=== PATIENT | male | born 1960 | race Caucasian/White ===

== ENCOUNTER 2022-03-02 17:00 | Emergency (ER) | payer MEDICAID ==
[~2022-03-02] VITALS: Ht 182.9 cm; Wt 95.5 kg
[2022-03-02 17:07] VITALS: BP 135/91
== END 2022-03-02 22:19 | disposition home or self-care (01) ==
LOC: ER 17:01
DX: M54.2 Cervicalgia (principal); M89.8X8 Other specified disorders of bone, other site; M89.50 Osteolysis, unspecified site; Z87.81 Personal history of (healed) traumatic fracture
CPT/HCPCS: 71046; 72040; 73030; 73200; 93005; 99284

== ENCOUNTER 2022-03-18 21:04 | Emergency (ER) | payer MEDICAID ==
[~2022-03-18] VITALS: Ht 182.9 cm; Wt 97.7 kg
[2022-03-19] MEDS ORDERED: ibuprofen tablet 400 MG TABLET PO ONE (03:00)
[2022-03-19] MEDS ORDERED: acetaminophen 325mg tablet PO ONE (03:00)
[2022-03-19 03:09] VITALS: BP 137/87
== END 2022-03-19 03:28 | disposition home or self-care (01) ==
LOC: ER 21:04
DX: S09.90XA Unspecified injury of head, initial encounter (principal); M54.2 Cervicalgia; R51.9 Headache, unspecified; Z72.0 Tobacco use; Y08.89XA Assault by other specified means, initial encounter; Y93.89 Activity, other specified; Y92.89 Other specified places as the place of occurrence of the external cause; Y99.8 Other external cause status
CPT/HCPCS: 70450; 72125; 99284

== ENCOUNTER 2025-03-18 12:44 | Inpatient (IN) | payer MEDICAID ==
[~2025-03-18] VITALS: Ht 182.9 cm; Wt 105.5 kg
--- NOTE | 2025-03-18 14:27 | Physician Documentation ---
History of Present Illness ~ Chief Complaint: Leg Pain Stated Complaint: LEG PAIN,CELLULITIS Time Seen by MD: 13:46 Primary Medical Doctor: none Source: patient Mode of Arrival: POV, Ambulatory Exam Limitations: no limitations HPI Chief Complaint: Right leg swelling Caveat: None Independent Historians: None History of Present Illness: Patient is a 64-year-old man who comes in complaining of right leg swelling and pain and redness that began yesterday. Pain is worse today and occurs primarily with standing and walking. Pain is 6/10 with walking and is minimal at rest. Patient denies any chest pain. No shortness a breath. Patient denies any abdominal pain. No nausea vomiting or diarrhea. Review of systems: All systems were reviewed and are negative except for what is indicated in the history of present illness. Past Medical History: Denies, patient states that he had cellulitis in the leg one year ago requiring IV antibiotics and hospitalization Past Surgical History: Noncontributory Social History: Tobacco use, denies any significant alcohol use, denies drug use Medications: Reviewed as documented Nursing Notes Allergies: Reviewed as documented in Nursing Notes Tetanus witin 5 years: Yes Medication Reconciliation Allergies: Coded Allergies: No Known Allergies (Unverified , 03/18/25) Past Medical History Past Medical History: Extremity Fracture Past Surgical History: no surgical history Drug Use: none Lives In: Home Review of Systems All Other Systems at this time: Reviewed and Negative ROS Patient denies any other acute symptoms other than above. All other systems are negative Physical Exam Vital Signs: RN Vital Signs have been reviewed: Yes, Temperature: 99.7, Source: Oral, Heart Rate: 95, Respiratory Rate: 20, BP: 119/56, Pulse Oximetry: 94, Weight: 105.500 Oxygen Flow Rate: 0 Pulse Oximetry Reflects: adequate oxygenation Physical Exam General Appearance: No distress, chronically ill-appearing HEENT: Normal OP, moist oral mucosa, PERRL, EOMI Neck: supple, normal ROM, trachea midline Pulmonary: No respiratory distress, CTA, BS equal Cardiac: RRR, no murmur, rub or gallop, GI: nondistended, soft, nontender, normal bowel sounds, no guarding, no rebound Extremities: normal ROM, patient has a blister on the distal right arch that is wet an open. Patient has a minor abrasion to the right posterior lateral ankle. The right foot and right leg or tensely swollen with the erythema that has warm to touch over the right anterior leg and ankle. Skin: intact, dry, warm, no rashes Neuro: AAOx3, speech is clear, no focal motor weakness Psych: normal affect, good eye contact, no apparent hallucination, normal speech Progress Results/Orders Results/Orders Orders - GOMEZ NICHOLSON MD Drug Screen, Urine (03/18/25 14:08) Cefazolin/D5w- 1gm Premix (Ancef 1 Gm-D5 (03/18/25 16:00) Page Hospitalist (03/18/25 15:07) Fill Out Med Reconciliation (03/18/25 15:07) Completed Orders - GOMEZ NICHOLSON MD Ethanol (03/18/25 14:08) Cbc/Diff (03/18/25 14:15) Lipase (03/18/25 14:15) CMP (03/18/25 14:15) Vital Signs 03/18/25 03/18/25 12:56 13:11 Temp 99.7 Pulse 95 Resp 20 B/P (MAP) 119/56 Pulse Ox 94 O2 Flow Rate 0 Laboratory Tests Test 03/18/25 14:15 White Blood Count 16.3 H Red Blood Count 4.58 L Hemoglobin 13.9 L Hematocrit 41.2 L Mean Corpuscular Volume 89.8 Mean Corpuscular Hemoglobin 30.3 Mean Corpuscular Hemoglobin Concent 33.8 Red Cell Distribution Width 14.4 Platelet Count 241 Mean Platelet Volume 8.0 Neutrophils (%) (Auto) 87.2 H Lymphocytes (%) (Auto) 5.7 L Monocytes (%) (Auto) 6.2 Eosinophils (%) (Auto) 0.5 Basophils (%) (Auto) 0.4 Neutrophils # (Auto) 14.2 H Lymphocytes # (Auto) 0.9 L Monocytes # (Auto) 1.0 H Eosinophils # (Auto) 0.1 Basophils # (Auto) 0.1 CBC Comment Sodium Level 137 Potassium Level 4.0 Chloride Level 101 Carbon Dioxide Level 29.4 Anion Gap 7 L Blood Urea Nitrogen 30 H Creatinine 1.51 H Estimated GFR/1.73 m2 47 BUN/Creatinine Ratio 19.9 Glucose Level 182 H Calcium Level 9.0 Total Bilirubin 1.1 H Aspartate Amino Transf (AST/SGOT) 21 Alanine Aminotransferase (ALT/SGPT) 32 Alkaline Phosphatase 55 Total Protein 7.2 Albumin 3.7 Globulin 3.5 Albumin/Globulin Ratio 1.1 Lipase 22 Chemistry Comments Ethyl Alcohol Level < 10 Medical Decision Making Findings Differential diagnosis includes but is not limited to: Cellulitis, venous stasis, peripheral edema, DVT Laboratory data independent interpretation: CBC: Leukocytosis of 16.3, mild anemia hemoglobin 13.9 CMP: BUN and creatinine are mildly elevated 30 and 1.51, serum glucose moderately elevated at 182. Unknown creatinine baseline Toxicology: ETOH< 10 Emergency department course/medical decision-making: Patient is a 64-year-old man that states he does not have any medical problems but appears otherwise. Patient appears chronically ill. Patient has what appears to be a cellulitis of the right leg. There are two sources for this infection. There was an abrasion over the posterior right lateral ankle and a blister on the arch of the right foot. Patient will be started on IV Ancef. We will rule out DVT although I believe this to be unlikely. Test results, uma tment plan and need for IV antibiotics and admission to the hospital was reviewed with the patient. Consultation/communications: 3:16 p.m.: Case discussed with the resident hospitalist, Dr. Arauz. We will evaluate the patient for admission. Departure Disposition: ADMITTED INPATIENT Admitted to Inpatient Unit: to hospitalist Admission Level of Care: Med/Surg Impression: Primary Impression: Cellulitis of right leg Condition: Stable Education Educated: Patient Educated regarding: diagnosis, treatment Signature Scribe Signature: No scribe Attestation: No scribe GOMEZ NICHOLSON MD Mar 18, 2025 14:27
[2025-03-18 14:39] LABS: MEAN PLATELET VOLUME 8.0 FL (7.4-10.4); RED CELL DISTRIBUTION WIDTH 14.4 % (11.5-14.5)
[2025-03-18 14:53] LABS: CREATININE 1.51 MG/DL (0.60-1.10); TOTAL CARBON DIOXIDE 29.4 MMOL/L (24-32); eCRCL 55 ML/MIN; eGFR 47 ML/MIN
[2025-03-18 15:03] LABS: ETHANOL < 10 MG/DL (<10)
[2025-03-18] MEDS ORDERED: magnesium hydroxide 30ml (MOM) UD suspension PO PRN (15:20)
[2025-03-18] MEDS ORDERED: HYDROmorphone/PF 0.2 MG/ML SYRINGE IV PRN (15:20)
[2025-03-18] MEDS ORDERED: ondansetron/PF 4mg/2ml inj IV PRN (15:20)
[2025-03-18] MEDS ORDERED: HYDROmorphone inj. 0.5 MG/0.5 ML DISP.SYRIN IV PRN (15:20)
[2025-03-18] MEDS ORDERED: potassium Cl 20 mEq SR tablet PO PRN ×2 (15:20)
[2025-03-18] MEDS ORDERED: magnesium sulf-water 2g/50mL 50 ML IV PRN (15:20)
[2025-03-18] MEDS ORDERED: mag hydrox/Alum hydrox/simeth 30ml oral suspension PO PRN (15:20)
[2025-03-18] MEDS ORDERED: potassium Cl 40MEQ/1/2NS 520ml 520 ML IV PRN (15:20)
[2025-03-18] MEDS ORDERED: magnesium sulf-water 4G/100mL 100 ML IV PRN (15:20)
[2025-03-18] MEDS ORDERED: magnesium Cl slow-release 64mg tablet PO PRN (15:20)
[2025-03-18] MEDS ORDERED: NO HOME MEDS (15:55)
--- NOTE | 2025-03-18 16:12 | VASCULAR REPORT ---
Procedure: [facility] Study Date and Requested Time: 03/18/2025 03:31 PM History: Right lower extremity pain/swelling Comparison: None Technique: Multiple high resolution schwarz-scale images with and without compression obtained of the ri t lower extremity veins, including the common femoral vein, deep femoral vein, proximal mid and dis michelet superficial femoral vein, and popliteal vein. Additional limited images of the greater saphenous vein also obtained. Augmentation performed as indicated. Color and spectral doppler flow images obtai dariana as indicated. Findings: No visible intraluminal venous thrombus. No evidence of incompressibility or abnormal color or spectr al Doppler flow visualized in the right lower extremity veins including, the common femoral vein, stephen p femoral vein, proximal mid and distal superficial femoral vein, and popliteal vein. Greater sapheno us vein grossly unremarkable. The left common femoral vein is patent. Incidental finding of prominent right inguinal lymph node which may be reactive. Soft tissue edema of the right lower extremity is noted. Impression: No sonographic evidence of right lower extremity deep venous thrombosis. The left common femoral vein appears patent.
[2025-03-18] MEDS: ceFAZolin/D5W- 1GM premix 50 ML IV SCH (16:31)
[2025-03-18] MEDS: normal saline 1000ml 1,000 ML IV SCH (16:31)
--- NOTE | 2025-03-18 17:08 | HISTORY AND PHYSICAL-Residence ---
History & Physical Providers to CC Resident Creating Document: ADRIAN DANIELS, RES ~ History of Present Illness Primary Medical Doctor: none Reason for Admit\Complaint: right leg pain History of Present Illness 64 years old man with no past medical history presented with right leg pain and swelling in the right leg after returning to his van from a store yesterday. he mentioned having vomiting which is dark red and 8 oz in quantity and having cough ,fever with out chills ,severe 9/10 pain yesterday today its 5/10 in his right leg with swelling, patient has been troubling a lot from past few days because of his shoes and there are some small cuts because of it. the swelling is red and warm cover the entire right lower leg with no discharge.patient denies any recent travel, any IV drug use , chronic medical conditions like DM,CAD,PAD,Hiperlipidemia. patient also mentioned past history of hospital admission for cellulitis of his same leg for which he undergone 10 days of antibiotic. Allergies: Coded Allergies: No Known Allergies (Unverified , 03/18/25) Home Medications Home Medications Active Reported No Home Medications (Home Med List) Each Past Medical History Past Medical History patient didnot mention any past medical conditons except for hospitalisation for Cellulitis of his leg Past Surgical History Surgical History Comment No surgical history Past Social History Smoking: Cigarettes (half a pack a week over 30 years) Alcohol Use: Occasionally (his last drink was 2 years ago) Drug Use: None Lives with: Other (ex ) Lives In: Home, Other (lives in his van) Occupation: retired (retired motorcyclist ) ROS All Other Systems: Reviewed and Negative Constitutional: Reports: fever Eyes: Reports: no symptoms reported ENT: Reports: no symptoms reported Respiratory: Reports: no symptoms reported Cardiovascular: Reports: no symptoms reported Gastrointestinal: Reports: vomiting (coughing up dark red blood) Genitourinary: Reports: no symptoms reported Male Genitalia: Reports: no symptoms reported Neurological: Reports: no symptoms reported Musculoskeletal: Reports: swelling (warm red swelling covering entire right lower limb) Integumentary: Reports: no symptoms reported Allergic/Immunologic: Reports: no symptoms reported Hematologic/Lymphatic: Reports: no symptoms reported Endocrine: Reports: no symptoms reported Psychiatric: Reports: no symptoms reported Exam Vitals: Vital Signs Date Time Temp Pulse Resp B/P (MAP) Pulse Ox O2 Delivery O2 Flow Rate FiO2 03/18/25 13:11 03/18/25 12:56 99.7 95 20 94 0 General: Alert, Oriented X4 , well co-operative during physical examination HEENT: Conjunctiva pink, Sclera clear, Mucus Membranes moist. Neck: Supple, no lymphadenopathy, no masses, no thyromegalay Chest: equal air movement , normal breath sounds heard, no whizzing, no ronchi Cardiovascular: regular rate and rythm,S1/S2 heard with no rubs, gallops, extra heart sounds Abdomen: Non tender,Normal bowel sounds on auscultations, little distended Extremities: Normal B/L Upper extremities, Inspection revealed right lower leg swelling which is warm and red , left lower leg varicoses . pedal pulses are felt strong on left side and right lower extremity pulses are mildly obscured by swelling Central Nervous System: No Focal neurological defects, normal gross motor and sensory functions Skin: warm and dry Diagnostic Data Last Recorded Lab Results: 03/18/25 1415 03/18/25 1415 Advance Care Planning Advanced Care plannin - 30 Minutes Additional Plan 64 years old male presents to ED with no past medical history is currently evaluated for Right leg swelling possible due to Cellulitis SEPSIS Criteria met Patient presents with right lower limb swelling Wbc: 16.3 , Procal; 1.40, ESR 19 Pulse: 95, temp ; 99.7 P: Blood cultures ordered completed Cefazolin ig IV q8h in ED started on Roceph 1 gram IV daily from tomorrow monitor CBP/CMP Hematemesis possible due to peptic ulcer disease H/H : 13.9/41.2 , MCV:89.8 Stool occult is Positive P: Monitor H/H Q12H Started Protonix IV BID Acute Kidney injury possible due to Dehydration BUN: 30 ,Cr: 1.51,BUN:CR: 19.9 P: Started NS IV 100 ml/hr monitor CMP DVT PPX: SCDs GI PPX : Protonix Pain control: Narco/Morphine Disposition: Patient will be monitored in Surgery Adrian Daniels Pgy[facility] Date of Service: Mar 18, 2025 Billing Provider: LALA HOWARD MD Common Visit Codes: 62344-[id number] INP/OBS CARE (HIGH) Secondary Visit Codes: 85026-[id number] CARE PLAN 30 MINUTES ADRIAN DANIELS, RES Mar 18, 2025 17:08 LALA HOWARD MD Mar 19, 2025 21:55
[2025-03-18] MEDS ORDERED: pantoprazole 40mg IV 80 MG in normal saline 100ml IV soln 100 ML IV ONE (17:25)
[2025-03-18 18:00] VITALS: BP 127/79; PULSE 72; RESP 15; TEMP 98.5; O2SAT 95
[2025-03-18] MEDS: pantoprazole 40MG/NS 100ML BAG 100 ML IV SCH (18:53)
[2025-03-18] MEDS ORDERED: heparin, porcine 5000 units/ml vial SQ SCH (20:00)
[2025-03-18] MEDS: K and/or MAG REPLACEMENT MC SCH (20:00)
[2025-03-18] MEDS: docusate sod 100mg capsule PO SCH (20:51)
[2025-03-18 21:33] LABS: URINE AMPHETAMINE SCREEN POSITIVE (Neg); URINE BARBITUATE SCREEN NEGATIVE (Neg); URINE BENZODIAZEPINES SCREEN NEGATIVE (Neg); URINE CANNABINOID SCREEN NEGATIVE (Neg); URINE COCAINE SCREEN NEGATIVE (Neg); URINE METHADONE SCREEN NEGATIVE (Neg); URINE OPIATE SCREEN NEGATIVE (Neg); URINE PHENCYCLIDINE SCREEN NEGATIVE (Neg)
[2025-03-18 22:00] VITALS: BP 124/72; PULSE 94; RESP 18; TEMP 98.6; O2SAT 96
[2025-03-18 23:48] LABS: MEAN PLATELET VOLUME 7.8 FL (7.4-10.4); RED CELL DISTRIBUTION WIDTH 14.4 % (11.5-14.5)
[2025-03-19 06:00] VITALS: BP 115/73; PULSE 97; RESP 18; TEMP 97.8; O2SAT 92
[2025-03-19 06:04] LABS: MEAN PLATELET VOLUME 7.9 FL (7.4-10.4); RED CELL DISTRIBUTION WIDTH 14.5 % (11.5-14.5)
[2025-03-19 06:23] LABS: CREATININE 0.98 MG/DL (0.60-1.10); TOTAL CARBON DIOXIDE 26.9 MMOL/L (24-32); eCRCL 85 ML/MIN; eGFR 77 ML/MIN
[2025-03-19] MEDS: CefTRIAXone/D5W-Rocephin 1gm 50 ML IV SCH (08:15)
[2025-03-19 10:00] VITALS: BP 114/61; PULSE 89; RESP 16; TEMP 98.1; O2SAT 97
--- NOTE | 2025-03-19 12:02 | CONSULTATION REPORT - RESIDENT ---
Consult Providers to CC Resident Creating Document: NIKOLAI GALEANO RANJITH CHAVEZ History of Present Illness Reason for Admit\Complaint: HEMATEMESIS History of Present Illness A 64 years old male patient with no past medical history presented to the ER with chief complaint of swelling and pain with a severity of 5/10 in the right lower leg after he returned home from the store yesterday evening associated with 2 episodes of dark red blood vomiting, fever without chills. Patient has been troubling a lot from small cuts in his shoes from past few days. Patient reports that he has history of cellulitis to the same leg for which he used antibiotics for 10 days. He stated that he has vomiting of dark red blood 2 times, 8 oz in quantity happened yesterday evening after he returned to home from the store. Patient stated that he drank small glass of gin 2 days back. Patient denies abdominal pain, dyspepsia, nausea, syncope, weakness, dizziness, blood in the stools. He denies any recent vomiting or retching. He denies any recent use of NSAIDs, aspirin, anticoagulant. He denies similar episodes or history of GI bleeding. Patient never had endoscopy or colonoscopy in the past. Allergies: Coded Allergies: No Known Allergies (Unverified , 03/18/25) Home Medications Home Medications Active Reported No Home Medications (Home Med List) Each Past Medical History Past Medical History Noncontributory Patient did not mention any past medical conditions Past Surgical History Surgical History Comment No surgical history Family History Family History: FH: emphysema MOTHER Past Social History Social History Comment Smoker, smokes half pack of cigarettes in a week from the past 30 years. Drinks alcohol very rarely , like once a year Denies any recreational drug use Independent for [employer] Retired ROS ROS Constitutional: Reports fever, No chills, dizziness, weight gain or loss Eyes: No pain, erythema, discharge, blurring of vision ENT: No sore throat, epistaxis, tinnitus Cardiovascular:No chest pain, palpitations, syncope, lower extremity edema, paroxysmal nocturnal dyspnea Respiratory: No Shortness of breath and cough, No hemoptysis. Gastrointestinal:Reports vomiting. No Abdominal pain, no nausea . Normal appetite. No constipation,diarrhea, hematemesis, melena or fresh blood Musculoskeletal: Reports swelling and pain the right lower extremity. Integumentary: No change in skin, hair, nails. No swelling, bruising, abrasions Neurologic: No weakness,No headache, neck pain, numbness or tingling of the extremities, Psychiatric: No delusions, depression, loss of interest in normal activity or change in sleep pattern, hallucinations, suicidal ideations Endocrine: No fatigue, no weakness. polydipsia, polyuria, change in appetite, heat or cold intolerance, sweating, dry skin Hematological: No bleeding, petechiae, bruising Allergies: No asthma or urticaria Exam Vitals: Vital Signs Date Time Temp Pulse Resp B/P (MAP) Pulse Ox O2 Delivery O2 Flow Rate FiO2 03/19/25 10:00 98.1 89 16 114/61 (78) 97 Room Air 03/18/25 20:00 0.0 General: Awake , alert and oriented to time,place, person, moderately built, not in distress HEENT: Atraumatic, normocephalic, PEERLA, anicteric sclera ; pink conjunctiva Neck: Trachea midline. Supple, normal range of motion, no JVD Cardiac: S1, S2 heard,Regular rate and rhythm, no murmurs heard. Chest and Respiratory: Equal breath sounds bilaterally, no tachypnea, wheezing and ronchi .Chest wall is symmetric and without deformity. Abdomen: Abdomen is soft, symmetric, no abdomen pain or tenderness. No guarding or rigidity, Ren's sign negative. normal bowel sounds x4 quadrant, normoactive, no hepatosplenomegaly MSK: Range of motion of all extremities are normal. There is no joint pain or joint swelling or joint erythema. There is no muscle pain or tenderness or swelling. Extremities: Redness and swelling of right lower extremity, warm, well- perfused, No cyanosis, clubbing, 2+ pulses felt Neurological: Speech is clear, alert, and oriented x 4. No sensory or motor deficits. Cranial nerves II-XII intact. Skin: Warm and dry Psychiatry: Affect and mood are normal Diagnostic Data Last Recorded Lab Results: [id number]/[id number] Additional Plan A 64 years old male patient admitted with right lower extremity cellulitis and hematemesis. Hematemesis possibly secondary to peptic ulcer disease H&H are 13.9 and 41.2, MCV:89.8 Ordered Occult blood stool Monitor H/H Q12H On IV Protonix 40 mg b.i.d. daily Patient never had endoscopy or colonoscopy in the past. Planned for colonoscopy in any inpatient or outpatient settings Patient was scheduled for EGD tomorrow, NPO after midnight Plan for CRC screening with a colonoscopy in any inpatient or outpatient setting. Patient is agreeable Cellulitis of right lower extremity Acute Kidney injury possible due to Dehydration - continue management as per primary team DVT prophylaxis: SCDs GI prophylaxis: IV Protonix Diet: Clear liquid diet and NPO after midnight Pain control:Morphine Disposition: Patient was admitted with cellulitis of right lower extremity and hematemesis. Planned for EGD tomorrow. Itzel Galeano MD Internal medicine resident, Pgy1 Sepsis Screening Reassessment Date: Mar 19, 2025 Date of Service: Mar 19, 2025 Billing Provider: MINESH ORTIZ MD, SUNIL KUMAR, RES Mar 19, 2025 12:02 MINESH ORTIZ MD Mar 19, 2025 16:27
[2025-03-19 12:21] LABS: MEAN PLATELET VOLUME 7.8 FL (7.4-10.4); RED CELL DISTRIBUTION WIDTH 14.5 % (11.5-14.5)
--- NOTE | 2025-03-19 14:46 | PROGRESS NOTE- Residence ---
Progress Note - Resident Providers to CC Resident Creating Document: JAMMIE LYONS RES ~ Antibiotic Timeout Antibiotic Ordered?: Yes Subjective Patient was seen and examined bedside. His right leg swelling seems to be improving. No acute symptoms overnight. Objective Vital Signs Date Time Temp Pulse Resp B/P (MAP) Pulse Ox O2 Delivery O2 Flow Rate FiO2 03/19/25 10:00 98.1 89 16 114/61 (78) 97 Room Air 03/18/25 20:00 0.0 Awake , alert and oriented to time,place, person, moderately built, not in distress HEENT: Atraumatic, normocephalic, PEERLA, anicteric sclera ; pink conjunctiva Neck: Trachea midline. Supple, normal range of motion, no JVD Cardiac: S1, S2 heard,Regular rate and rhythm, no murmurs heard. Chest and Respiratory: Equal breath sounds bilaterally, no tachypnea, wheezing and ronchi .Chest wall is symmetric and without deformity. Abdomen: Abdomen is soft, symmetric, no abdomen pain or tenderness. No guarding or rigidity, Ren's sign negative. normal bowel sounds x4 quadrant, normoactive, no hepatosplenomegaly MSK: Range of motion of all extremities are normal. There is no joint pain or joint swelling or joint erythema. Extremities: Redness and swelling of right lower extremity, warm, well- perfused, No cyanosis, clubbing, 2+ pulses felt Neurological: Speech is clear, alert, and oriented x 4. No sensory or motor deficits. Cranial nerves II-XII intact. Skin: Warm and dry Psychiatry: Affect and mood are normal Result Diagram: 03/19/25 1204 03/19/25 0538 Assessment Assessment Right leg swelling possibly due to Cellulitis Temp-98.1, Pulse-89, RR-16, BP-114/61 WBC-14.7, Neutrophils-74.3 % Procal-1.4, Lactic acid-1.6 Blood cultures are negative No evidence of DVT in vascular US Plan: on Rocephin 1 gram IV daily monitor CBP/CMP Hematemesis possibly due to peptic ulcer disease Hb downtrended from 13.9 to 12.8 , Hct downtrended from 41.2 to 38.5, MCV:89.8 Stool occult blood test was ordered Plan: was consulted and patient is scheduled for EGD tomorrow. NPO after midnight Monitor H/H Q12H On Protonix IV BID Acute Kidney injury possibly due to Dehydration BUN: downtrended from 30 to 24, Cr: downtrended from 1.51 to 0.98, BUN:CR: 24.5 Plan: On NS IV 100 ml/hr monitor CMP Plan Plan Patient is scheduled for an EGD tomorrow. NPO after midnight Monitor H&H and CMP Jammie Lyons Internal Medicine Resident, PGY-1 Date of Service: Mar 19, 2025 Billing Provider: LALA HOWARD MD,JAMMIE, RES Mar 19, 2025 14:46
[2025-03-19 18:00] VITALS: BP 113/71; PULSE 87; RESP 16; TEMP 98.8; O2SAT 95
[2025-03-19 19:45] VITALS: RESP 16
--- NOTE | 2025-03-20 18:49 | DISCHARGE SUMMARY-Residence ---
Discharge Summary Providers to CC Resident Creating Document: MICHELLE SANDOVAL, RES ~ Discharge Summary Admission Diagnosis: right leg swelling Hospital Course DATE OF ADMISSION: 03/18/2025 DATE OF DISCHARGE: 03/19/2025 Discharge Diagnosis\Comment: Right leg swelling possibly due to Cellulitis Hematemesis possibly due to peptic ulcer disease Acute Kidney injury possibly due to Dehydration Operations\Procedures: None Consultants: None Complications: None Condition on DC: Stable Discharge Summary: HPI as per admitting physician: 64 years old man with no past medical history presented with right leg pain and swelling in the right leg after returning to his van from a store yesterday. he mentioned having vomiting which is dark red and 8 oz in quantity and having cough ,fever with out chills ,severe 9/10 pain yesterday today its 5/10 in his right leg with swelling, patient has been troubling a lot from past few days because of his shoes and there are some small cuts because of it. the swelling is red and warm cover the entire right lower leg with no discharge.patient denies any recent travel, any IV drug use , chronic medical conditions like DM,CAD,PAD,Hiperlipidemia. patient also mentioned past history of hospital admission for cellulitis of his same leg for which he undergone 10 days of antibiotic. Hospital course: The patient was admitted for hematemesis, likely secondary to peptic ulcer disease. On admission, hemoglobin was 13.9 g/dL and hematocrit 41.2%, which downtrended to 12.8 g/dL and 38.5%, respectively. MCV was 89.8 fL. A stool occult blood test was ordered to further evaluate for gastrointestinal bleeding. The patient was started on IV Rocephin 1 g daily for empiric coverage and IV Protonix BID for acid suppression. Daily monitoring of CBC and CMP was initiated. The patient was kept NPO after midnight in anticipation of an esophagogastroduodenoscopy (EGD), for which Dr. Fountain was consulted and scheduled the procedure for the following day. The patient also had acute kidney injury, likely secondary to dehydration, with initial BUN 30 mg/dL and creatinine 1.51 mg/dL, which improved to BUN 24 mg/dL and creatinine 0.98 mg/dL with IV fluid resuscitation. BUN:Cr ratio was 24.5. Throughout the hospitalization, the patients hemodynamic status remained stable. Hematologic and renal parameters were closely monitored with plans for continued management post-EGD. Disposition: The patient left against medical advice (AMA) prior to undergoing the scheduled EGD. The patient was counseled regarding the risks of leaving AMA, including potential ongoing gastrointestinal bleeding, worsening anemia, and kidney injury. The patient verbalized understanding but elected to leave the hospital. Physical examination: Awake , alert and oriented to time,place, person, moderately built, not in distress HEENT: Atraumatic, normocephalic, PEERLA, anicteric sclera ; pink conjunctiva Neck: Trachea midline. Supple, normal range of motion, no JVD Cardiac: S1, S2 heard,Regular rate and rhythm, no murmurs heard. Chest and Respiratory: Equal breath sounds bilaterally, no tachypnea, wheezing and ronchi .Chest wall is symmetric and without deformity. Abdomen: Abdomen is soft, symmetric, no abdomen pain or tenderness. No guarding or rigidity, Ren's sign negative. normal bowel sounds x4 quadrant, normoactive, no hepatosplenomegaly MSK: Range of motion of all extremities are normal. There is no joint pain or joint swelling or joint erythema. Extremities: Redness and swelling of right lower extremity, warm, well- perfused, No cyanosis, clubbing, 2+ pulses felt Neurological: Speech is clear, alert, and oriented x 4. No sensory or motor deficits. Cranial nerves II-XII intact. Skin: Warm and dry Psychiatry: Affect and mood are normal *Problems/Diagnosis: (1) Cellulitis of right leg Status: Acute Total Time Spent on D/C: > 30 Minutes Date of Service: Mar 20, 2025 Billing Provider: LALA HOWARD MD, GAURAV, RES Mar 20, 2025 18:46
== END 2025-03-19 20:05 | disposition left against medical advice (07) | DRG 241 ==
LOC: ER 12:45 → ED HOLD 15:30 → ORTHO 4S 18:03
PROVIDERS: ADMIT Internal Medicine; ATTEND Internal Medicine
DX: K27.4 Chronic or unspecified peptic ulcer, site unspecified, with hemorrhage (principal); N17.9 Acute kidney failure, unspecified; L03.115 Cellulitis of right lower limb; E86.0 Dehydration; Z53.21 Procedure and treatment not carried out due to patient leaving prior to being seen by health care provider
CPT/HCPCS: 36415; 80053; 80305; 80320; 83036; 83605; 83690; 83735; 84145; 84550; 85025; 85027; 85651; 86140; 86885; 86900; 86901; 87040; 87081; 93971; 96361; 96365; 99285; G0378; J0690; J0696; J2470; J7030